=== PATIENT | male | born 1945 | race Caucasian/White ===

== ENCOUNTER 2017-11-18 04:46 | Emergency (ER) | payer MEDICARE ==
[~2017-11-18] VITALS: Ht 177.8 cm; Wt 103.4 kg
== END 2017-11-18 05:26 | disposition home or self-care (01) ==
LOC: ER 04:46
DX: I50.9 Heart failure, unspecified (principal); I10 Essential (primary) hypertension; E11.9 Type 2 diabetes mellitus without complications; I48.91 Unspecified atrial fibrillation; G89.29 Other chronic pain
CPT/HCPCS: 99282